=== PATIENT | male | born 1930 | race Two or more races ===

== ENCOUNTER 2018-05-17 12:02 | Inpatient (IN) | payer MEDICARE ==
[~2018-05-17] VITALS: Ht 177.8 cm; Wt 59.0 kg
[~2018-05-17 12:02] MED LIST: NORCO 5-325 TA1 EACH ORAL
[2018-05-17 15:00] VITALS: BP 155/79
[2018-05-17 15:52] VITALS: BP 155/79
[2018-05-17 15:57] VITALS: BP 137/66
[2018-05-17] MEDS ORDERED: Nitroglycerin Subl 0.4mg tab SL PRN (18:15)
[2018-05-17] MEDS ORDERED: Lexiscan 0.4mg/5ml syringe IV PRN (18:15)
--- NOTE | 2018-05-17 18:21 | History & Physical ---
History and Physical History & Physicial Dictated for Int Med-Dr Perez no. [id number]. Berto Bailey MD May 17, 2018 18:21
[2018-05-17 18:59] LABS: BASOPHILS % (AUTO) 0.6 % (0.0-2.0); EOSINOPHILS % (AUTO) 1.5 % (0.0-3.0); HEMATOCRIT 38.3 % (42.0-52.0); HEMOGLOBIN 12.4 G/DL (14.2-18.0); LYMPHOCYTES % (AUTO) 30.6 % (20.0-45.0); MEAN CORPUSCULAR VOLUME 92 FL (80-99); MONOCYTES % (AUTO) 13.5 % (1.0-10.0); NEUTROPHILS % (AUTO) 53.9 % (45.0-75.0); PLATELET COUNT 120 K/UL (150-450); RED BLOOD COUNT 4.17 M/UL (4.70-6.10); RED CELL DISTRIBUTION WIDTH 14.6 % (11.6-14.8); WHITE BLOOD COUNT 3.8 K/UL (4.8-10.8)
[2018-05-17 19:04] LABS: INR 1.1 (0.9-1.1)
[2018-05-17 19:21] LABS: ALANINE AMINOTRANSFERASE 23 U/L (12-78); ALBUMIN/GLOBULIN RATIO 0.6 (1.0-2.7); ALKALINE PHOSPHATASE 217 U/L (46-116); ANION GAP 9 mmol/L (5-15); ASPARTATE AMINO TRANSFERASE 31 U/L (15-37); BILIRUBIN,TOTAL 0.7 MG/DL (0.2-1.0); BLOOD UREA NITROGEN 34 mg/dL (7-18); CALCIUM 9.1 MG/DL (8.5-10.1); CARBON DIOXIDE 28 MMOL/L (21-32); CHLORIDE 99 MMOL/L (98-107); CREATININE 1.4 MG/DL (0.55-1.30); POTASSIUM 4.3 MMOL/L (3.5-5.1); SODIUM 136 MMOL/L (136-145)
[2018-05-17 20:00] VITALS: BP 138/80
[2018-05-17] MEDS: Heparin 5000 units/ml inj SUBQ SCH (20:54)
[2018-05-17] MEDS ORDERED: Heparin 5000 units/ml inj SUBQ ONE (21:00)
[2018-05-17] MEDS: Docusate 100mg cap ORAL SCH (21:08)
[2018-05-17] MEDS: HYDROmorphone 1mg/ml Carpuject IVP PRN (21:09)
[2018-05-17] MEDS: Zolpidem 5mg tab ORAL PRN (23:22)
[2018-05-18] VITALS: BP 134/91
--- NOTE | 2018-05-18 01:14 | History and Physical Report ---
DATE OF ADMISSION: 05/17/2018 CHIEF COMPLAINT: The patient is an 87-year-old white male, presents with chief complaint of chest pain. HISTORY OF PRESENT ILLNESS: The patient has a history of coronary artery disease, status post stent placement in 2006. The patient began to experience chest pain one day prior to admission. Chest pain does not radiate to the jaw or to the shoulder. Chest pain is substernal and sharp in nature. The patient presented to [facility] Emergency Room. Initial troponin level was within normal limits. The patient is transferred to [facility] for insurance purposes. The patient is admitted for chest pain to rule out acute coronary syndrome. REVIEW OF SYSTEMS: CONSTITUTIONAL: The patient denies weight loss or weight gain. The patient denies fevers or chills. HEENT: The patient denies ear or throat pain. The patient denies headache. CARDIOVASCULAR: The patient complains of chest pain as above. The patient denies palpitations. ABDOMINAL: The patient denies nausea, vomiting, diarrhea, or constipation. GENITOURINARY: The patient denies dysuria or increased frequency of urination. NEUROMUSCULAR: The patient denies seizures or generalized weakness. PAST MEDICAL HISTORY: Significant for: 1. Aortic valve insufficiency. 2. Human immunodeficiency virus positive. 3. Coronary artery disease. 4. Hypercholesterolemia. 5. AV block, Mobitz type II. PAST SURGICAL HISTORY: Significant for: 1. Appendectomy. 2. Cataract surgery. 3. Cosmetic surgery of the face. 4. Appendectomy. 5. Aortic valve replacement. 6. Pacemaker implantation in 2010. CURRENT MEDICATIONS: 1. Opp 5/325 mg one tablet p.o. q.6 h. as needed pain. 2. Lexiva 700 mg 2 tablets p.o. twice daily. 3. Aspirin 81 mg 1 tablet p.o. daily. ALLERGIES: To penicillin. SOCIAL HISTORY: The patient is single and lives alone. The patient denies tobacco or alcohol use. PHYSICAL EXAMINATION: VITAL SIGNS: Temperature 97.5, respirations 18, and pulse 59 to 78. GENERAL: The patient is thin-appearing white male, in no apparent distress. HEENT: Eyes, pupils are equal and responsive to light and accommodation. Extraocular movements are intact. NECK: Supple without lymphadenopathy. CHEST: Lungs are clear to auscultation bilaterally without wheezes or rales. CARDIOVASCULAR: Regular rhythm and rate. S1, S2 are normal without murmurs, rubs, or gallops. ABDOMEN: Soft, nontender, and nondistended. Positive bowel sounds. No evidence of hepatosplenomegaly. Currently, no rebound or guarding noted. EXTREMITIES: Negative for clubbing, cyanosis, or edema. RECTAL/GENITAL: Refused. NEUROLOGIC: Cranial nerves II through XII are grossly intact without focal deficits. Motor strength is 5/5 bilaterally. Deep tendon reflexes are 2+ plantar. LABORATORY AND DIAGNOSTIC DATA: WBC 3.3, hemoglobin 11.9, hematocrit 35.1, and platelets 125,000. Sodium 134, potassium 4.1, chloride 101, CO2 24, troponin 0.06, BUN 48, creatinine , and glucose 86. EKG demonstrated ventricular pacing at approximately 77 beats per minute. ASSESSMENT: This is an 87-year-old white male with, 1. Chest pain. 2. Coronary artery disease. 3. Human immunodeficiency virus. 4. Hypercholesteremia. 5. AV block, Mobitz type II. TREATMENT: 1. Chest pain/history of coronary artery disease. A Cardiology consultation has been obtained with Dr. Bob Reaves. Serial troponin levels will be performed. The patient has been started on aspirin empirically. 2. HIV. Continue Lexiva as above. 3. Hypercholesterolemia. 4. AV block, Mobitz type II. The patient has a ventricular pacemaker. Berto Bailey M.D. DR: JESENIA JOB#: [id number] CC:
[2018-05-18] MEDS: LORazepam 1mg tab ORAL PRN (02:39)
[2018-05-18] MEDS: HYDROmorphone 1mg/ml Carpuject IVP PRN (03:25)
[2018-05-18 04:00] VITALS: BP 126/82
[2018-05-18 07:44] LABS: BASOPHILS % (AUTO) 0.8 % (0.0-2.0); EOSINOPHILS % (AUTO) 1.4 % (0.0-3.0); HEMOGLOBIN 11.4 G/DL (14.2-18.0); LYMPHOCYTES % (AUTO) 23.5 % (20.0-45.0); MEAN CORPUSCULAR VOLUME 92 FL (80-99); MONOCYTES % (AUTO) 15.5 % (1.0-10.0); NEUTROPHILS % (AUTO) 58.8 % (45.0-75.0); PLATELET COUNT 125 K/UL (150-450); RED BLOOD COUNT 3.71 M/UL (4.70-6.10); RED CELL DISTRIBUTION WIDTH 14.9 % (11.6-14.8); WHITE BLOOD COUNT 3.8 K/UL (4.8-10.8)
[2018-05-18 08:00] VITALS: BP 138/76
[2018-05-18 08:02] LABS: ANION GAP 8 mmol/L (5-15); BLOOD UREA NITROGEN 28 mg/dL (7-18); CALCIUM 9.2 MG/DL (8.5-10.1); CARBON DIOXIDE 27 MMOL/L (21-32); CHLORIDE 103 MMOL/L (98-107); CHOLESTEROL 107 MG/DL (< 200); CREATININE 1.3 MG/DL (0.55-1.30); HDL CHOLESTEROL 35 MG/DL (40-60); POTASSIUM 4.4 MMOL/L (3.5-5.1); SODIUM 138 MMOL/L (136-145); TRIGLYCERIDES 71 MG/DL (30-150)
[2018-05-18] MEDS ORDERED: Aspirin EC 325mg tab ORAL SCH (09:00)
[2018-05-18] MEDS: Heparin 5000 units/ml inj SUBQ SCH ×2 (09:00→20:50)
[2018-05-18] MEDS: Docusate 100mg cap ORAL SCH ×2 (09:28→20:49)
[2018-05-18 12:00] VITALS: BP 150/88
[2018-05-18 16:00] VITALS: BP 153/82
--- NOTE | 2018-05-18 16:06 | Internal Med Progress Note ---
Subjective Date of Service: May 18, 2018 Physician Name Berto Bailey Attending Physician Alejandro Perez MD Current Medications Medications (Trade) Dose Ordered Sig/Irina Route PRN Reason Start Time Stop Time Status Last Admin Dose Admin Acetaminophen (Tylenol) 650 mg Q4H PRN ORAL Mild Pain (Pain Scale 1-3) 05/17/18 18:15 06/16/18 18:14 Acetaminophen (Tylenol) 650 mg Q4H PRN ORAL T>100.5 05/17/18 18:15 06/16/18 18:14 Aspirin (Ecotrin) 325 mg DAILY ORAL 05/18/18 09:00 06/17/18 08:59 05/18/18 09:28 Dextrose (Dextrose 50%) 25 ml Q30M PRN IV Hypoglycemia 05/17/18 18:15 06/16/18 18:14 Dextrose (Dextrose 50%) 50 ml Q30M PRN IV Hypoglycemia 05/17/18 18:15 06/16/18 18:14 Docusate Sodium (Colace) 100 mg EVERY 12 HOURS ORAL 05/17/18 21:00 06/16/18 20:59 05/18/18 09:28 Heparin Sodium (Porcine) (Heparin 5000 units/ml) 5,000 units EVERY 12 HOURS SUBQ 05/17/18 21:00 06/16/18 20:59 Hydromorphone HCl (Dilaudid) 1 mg Q4H PRN IVP Moderate Pain (Pain Scale 4-6) 05/17/18 18:15 05/24/18 18:14 05/18/18 03:25 Hydromorphone HCl (Dilaudid) 2 mg Q4H PRN IVP Severe Pain (Pain Scale 7-10) 05/17/18 18:15 05/24/18 18:14 05/18/18 10:52 Lorazepam (Ativan) 1 mg Q4H PRN ORAL For Anxiety 05/17/18 18:15 05/24/18 18:14 05/18/18 02:39 Nitroglycerin (Ntg) 0.4 mg Q5M PRN SL Prn Chest Pain 05/17/18 18:15 06/16/18 18:14 Ondansetron HCl (Zofran) 4 mg Q6H PRN IVP Nausea & Vomiting 05/17/18 18:15 06/16/18 18:14 Pantoprazole (Protonix) 40 mg DAILY ORAL 05/18/18 09:00 06/17/18 08:59 05/18/18 09:28 Regadenoson (Lexiscan) 0.4 mg ONCE PRN IV STRESS TEST 05/17/18 18:15 05/20/18 23:59 Zolpidem Tartrate (Ambien) 5 mg HSPRN PRN ORAL Insomnia 05/17/18 21:00 05/24/18 20:59 05/17/18 23:22 Allergies: Coded Allergies: PENICILLINS (Verified Allergy, Severe, Swelling tongue, 05/17/18) ROS Limited/Unobtainable: No Constitutional: Reports: no symptoms HEENT: Reports: no symptoms Cardiovascular: Reports: chest pain Respiratory: Reports: no symptoms Gastrointestinal/Abdominal: Reports: no symptoms Genitourinary: Reports: no symptoms Neurologic/Psychiatric: Reports: no symptoms Subjective 87 YO M admitted with chest pain. Now 40 beat run of ventricular tachycardia last pm. Needs cardiac cath. Await transfer to [facility] [place]. Cover for Int Med-Dr Perez Objective Last Vital Signs Date Time Temp Pulse Resp B/P (MAP) Pulse Ox O2 Delivery O2 Flow Rate FiO2 05/18/18 12:00 98.0 103 20 150/88 (108) 96 05/18/18 09:00 Room Air General Appearance: WD/WN, no apparent distress, alert, thin EENT: PERRL/EOMI, normal ENT inspection, TMs normal Neck: non-tender, normal alignment, supple, normal inspection Cardiovascular: normal peripheral pulses, normal rate, regular rhythm, no gallop/murmur, no JVD Respiratory/Chest: chest wall non-tender, lungs clear, normal breath sounds, no respiratory distress, no accessory muscle use Abdomen: normal bowel sounds, non tender, soft, no organomegaly, no mass Extremities: normal range of motion, non-tender Neurologic: home health nurse II-XII grossly normal, no motor/sensory deficits Skin: normal pigmentation, warm/dry Laboratory Tests Test 05/17/18 18:35 05/18/18 06:45 05/18/18 09:45 White Blood Count 3.8 K/UL (4.8-10.8) L 3.8 K/UL (4.8-10.8) L Red Blood Count 4.17 M/UL (4.70-6.10) L 3.71 M/UL (4.70-6.10) L Hemoglobin 12.4 G/DL (14.2-18.0) L 11.4 G/DL (14.2-18.0) L Hematocrit 38.3 % (42.0-52.0) L 34.0 % (42.0-52.0) L Mean Corpuscular Volume 92 FL (80-99) 92 FL (80-99) Mean Corpuscular Hemoglobin 29.8 PG (27.0-31.0) 30.7 PG (27.0-31.0) Mean Corpuscular Hemoglobin Concent 32.4 G/DL (32.0-36.0) 33.5 G/DL (32.0-36.0) Red Cell Distribution Width 14.6 % (11.6-14.8) 14.9 % (11.6-14.8) H Platelet Count 120 K/UL (150-450) L 125 K/UL (150-450) L Mean Platelet Volume 5.7 FL (6.5-10.1) L 6.0 FL (6.5-10.1) L Neutrophils (%) (Auto) 53.9 % (45.0-75.0) 58.8 % (45.0-75.0) Lymphocytes (%) (Auto) 30.6 % (20.0-45.0) 23.5 % (20.0-45.0) Monocytes (%) (Auto) 13.5 % (1.0-10.0) H 15.5 % (1.0-10.0) H Eosinophils (%) (Auto) 1.5 % (0.0-3.0) 1.4 % (0.0-3.0) Basophils (%) (Auto) 0.6 % (0.0-2.0) 0.8 % (0.0-2.0) Prothrombin Time 11.7 SEC (9.30-11.50) H Prothromb Time International Ratio 1.1 (0.9-1.1) Activated Partial Thromboplast Time 31 SEC (23-33) Sodium Level 136 MMOL/L (136-145) 138 MMOL/L (136-145) Potassium Level 4.3 MMOL/L (3.5-5.1) 4.4 MMOL/L (3.5-5.1) Chloride Level 99 MMOL/L (98-107) 103 MMOL/L (98-107) Carbon Dioxide Level 28 MMOL/L (21-32) 27 MMOL/L (21-32) Anion Gap 9 mmol/L (5-15) 8 mmol/L (5-15) Blood Urea Nitrogen 34 mg/dL (7-18) H 28 mg/dL (7-18) H Creatinine 1.4 MG/DL (0.55-1.30) H 1.3 MG/DL (0.55-1.30) Estimat Glomerular Filtration Rate mL/min (>60) mL/min (>60) Glucose Level 66 MG/DL (74-106) L 73 MG/DL (74-106) L Calcium Level 9.1 MG/DL (8.5-10.1) 9.2 MG/DL (8.5-10.1) Total Bilirubin 0.7 MG/DL (0.2-1.0) Aspartate Amino Transf (AST/SGOT) 31 U/L (15-37) Alanine Aminotransferase (ALT/SGPT) 23 U/L (12-78) Alkaline Phosphatase 217 U/L (46-116) H Troponin I 0.068 ng/mL (0.000-0.056) 0.053 ng/mL (0.000-0.056) Total Protein 7.7 G/DL (6.4-8.2) Albumin 3.0 G/DL (3.4-5.0) L Globulin 4.7 g/dL Albumin/Globulin Ratio 0.6 (1.0-2.7) L Thyroid Stimulating Hormone (TSH) 4.029 uiU/mL (0.358-3.740) Triglycerides Level 71 MG/DL (30-150) Cholesterol Level 107 MG/DL (< 200) LDL Cholesterol 68 mg/dL (<100) HDL Cholesterol 35 MG/DL (40-60) L Cholesterol/HDL Ratio 3.1 (3.3-4.4) L Magnesium Level 1.5 MG/DL (1.8-2.4) L Intake and Output 05/17/18 05/18/18 18:59 06:59 Intake Total 240 ml Balance 240 ml Intake Oral 240 ml # Voids 1 3 Assessment/Plan Problem List: (1) HIV disease Assessment & Plan: Continue Lexiva (2) Hypercholesteremia (3) Mobitz type 2 second degree AV block Assessment & Plan: S/P pacemaker. (4) Ventricular tachycardia (paroxysmal) (5) Congestive heart failure (CHF) Assessment & Plan: LVEF=20-25%. See cardiology note. Will require defibrillator. Await transfer to [facility] (6) Chest pain Assessment & Plan: Patient needs cardiac cath in view of previous stent X4 and v-tach. Await transfer to [facility] Status: not improved Berto Bailey MD May 18, 2018 16:06
--- NOTE | 2018-05-18 16:28 | Infectious Diseases Prog Note ---
Assessment/Plan Assessment/Plan Full consult dictated: A) 1) hiv, does not remember anti-retrovirals 2) cp 3) hx cardiac disease P) 1) check cd4 and viral load 2) get records of anti-retrovirals 3) cardiac w/u 4) d/w Dr. Bailey 5) thank you Subjective Allergies: Coded Allergies: PENICILLINS (Verified Allergy, Severe, Swelling tongue, 05/17/18) Objective Vital Signs Last 24 Hour Vital Signs Date Time Temp Pulse Resp B/P (MAP) Pulse Ox O2 Delivery O2 Flow Rate FiO2 05/18/18 12:00 98.0 103 20 150/88 (108) 96 05/18/18 12:00 113 05/18/18 11:22 98.6 05/18/18 09:00 Room Air 05/18/18 08:00 67 05/18/18 08:00 98.6 74 20 138/76 (96) 96 05/18/18 04:00 89 05/18/18 04:00 97.7 74 18 126/82 (97) 97 05/18/18 00:00 76 05/18/18 00:00 98.5 80 19 134/91 (105) 98 05/17/18 21:00 Room Air 05/17/18 20:00 97.7 72 18 138/80 (99) 97 05/17/18 20:00 80 Height (Feet): 5 Height (Inches): 10.00 Weight (Pounds): 130 Laboratory Tests Test 05/17/18 18:35 05/18/18 06:45 05/18/18 09:45 White Blood Count 3.8 K/UL (4.8-10.8) L 3.8 K/UL (4.8-10.8) L Red Blood Count 4.17 M/UL (4.70-6.10) L 3.71 M/UL (4.70-6.10) L Hemoglobin 12.4 G/DL (14.2-18.0) L 11.4 G/DL (14.2-18.0) L Hematocrit 38.3 % (42.0-52.0) L 34.0 % (42.0-52.0) L Mean Corpuscular Volume 92 FL (80-99) 92 FL (80-99) Mean Corpuscular Hemoglobin 29.8 PG (27.0-31.0) 30.7 PG (27.0-31.0) Mean Corpuscular Hemoglobin Concent 32.4 G/DL (32.0-36.0) 33.5 G/DL (32.0-36.0) Red Cell Distribution Width 14.6 % (11.6-14.8) 14.9 % (11.6-14.8) H Platelet Count 120 K/UL (150-450) L 125 K/UL (150-450) L Mean Platelet Volume 5.7 FL (6.5-10.1) L 6.0 FL (6.5-10.1) L Neutrophils (%) (Auto) 53.9 % (45.0-75.0) 58.8 % (45.0-75.0) Lymphocytes (%) (Auto) 30.6 % (20.0-45.0) 23.5 % (20.0-45.0) Monocytes (%) (Auto) 13.5 % (1.0-10.0) H 15.5 % (1.0-10.0) H Eosinophils (%) (Auto) 1.5 % (0.0-3.0) 1.4 % (0.0-3.0) Basophils (%) (Auto) 0.6 % (0.0-2.0) 0.8 % (0.0-2.0) Prothrombin Time 11.7 SEC (9.30-11.50) H Prothromb Time International Ratio 1.1 (0.9-1.1) Activated Partial Thromboplast Time 31 SEC (23-33) Sodium Level 136 MMOL/L (136-145) 138 MMOL/L (136-145) Potassium Level 4.3 MMOL/L (3.5-5.1) 4.4 MMOL/L (3.5-5.1) Chloride Level 99 MMOL/L (98-107) 103 MMOL/L (98-107) Carbon Dioxide Level 28 MMOL/L (21-32) 27 MMOL/L (21-32) Anion Gap 9 mmol/L (5-15) 8 mmol/L (5-15) Blood Urea Nitrogen 34 mg/dL (7-18) H 28 mg/dL (7-18) H Creatinine 1.4 MG/DL (0.55-1.30) H 1.3 MG/DL (0.55-1.30) Estimat Glomerular Filtration Rate mL/min (>60) mL/min (>60) Glucose Level 66 MG/DL (74-106) L 73 MG/DL (74-106) L Calcium Level 9.1 MG/DL (8.5-10.1) 9.2 MG/DL (8.5-10.1) Total Bilirubin 0.7 MG/DL (0.2-1.0) Aspartate Amino Transf (AST/SGOT) 31 U/L (15-37) Alanine Aminotransferase (ALT/SGPT) 23 U/L (12-78) Alkaline Phosphatase 217 U/L (46-116) H Troponin I 0.068 ng/mL (0.000-0.056) 0.053 ng/mL (0.000-0.056) Total Protein 7.7 G/DL (6.4-8.2) Albumin 3.0 G/DL (3.4-5.0) L Globulin 4.7 g/dL Albumin/Globulin Ratio 0.6 (1.0-2.7) L Thyroid Stimulating Hormone (TSH) 4.029 uiU/mL (0.358-3.740) Triglycerides Level 71 MG/DL (30-150) Cholesterol Level 107 MG/DL (< 200) LDL Cholesterol 68 mg/dL (<100) HDL Cholesterol 35 MG/DL (40-60) L Cholesterol/HDL Ratio 3.1 (3.3-4.4) L Magnesium Level 1.5 MG/DL (1.8-2.4) L Current Medications Medications (Trade) Dose Ordered Sig/Irina Route PRN Reason Start Time Stop Time Status Last Admin Dose Admin Acetaminophen (Tylenol) 650 mg Q4H PRN ORAL Mild Pain (Pain Scale 1-3) 05/17/18 18:15 06/16/18 18:14 Acetaminophen (Tylenol) 650 mg Q4H PRN ORAL T>100.5 05/17/18 18:15 06/16/18 18:14 Aspirin (Ecotrin) 325 mg DAILY ORAL 05/18/18 09:00 06/17/18 08:59 05/18/18 09:28 Dextrose (Dextrose 50%) 25 ml Q30M PRN IV Hypoglycemia 12/8/18 18:15 06/16/18 18:14 Dextrose (Dextrose 50%) 50 ml Q30M PRN IV Hypoglycemia 05/17/18 18:15 06/16/18 18:14 Docusate Sodium (Colace) 100 mg EVERY 12 HOURS ORAL 05/17/18 21:00 06/16/18 20:59 05/18/18 09:28 Heparin Sodium (Porcine) (Heparin 5000 units/ml) 5,000 units EVERY 12 HOURS SUBQ 05/17/18 21:00 06/16/18 20:59 Hydromorphone HCl (Dilaudid) 1 mg Q4H PRN IVP Moderate Pain (Pain Scale 4-6) 05/17/18 18:15 05/24/18 18:14 05/18/18 03:25 Hydromorphone HCl (Dilaudid) 2 mg Q4H PRN IVP Severe Pain (Pain Scale 7-10) 05/17/18 18:15 05/24/18 18:14 05/18/18 10:52 Lorazepam (Ativan) 1 mg Q4H PRN ORAL For Anxiety 05/17/18 18:15 05/24/18 18:14 05/18/18 02:39 Nitroglycerin (Ntg) 0.4 mg Q5M PRN SL Prn Chest Pain 05/17/18 18:15 06/16/18 18:14 Ondansetron HCl (Zofran) 4 mg Q6H PRN IVP Nausea & Vomiting 05/17/18 18:15 06/16/18 18:14 Pantoprazole (Protonix) 40 mg DAILY ORAL 05/18/18 09:00 06/17/18 08:59 05/18/18 09:28 Regadenoson (Lexiscan) 0.4 mg ONCE PRN IV STRESS TEST 05/17/18 18:15 05/20/18 23:59 Zolpidem Tartrate (Ambien) 5 mg HSPRN PRN ORAL Insomnia 05/17/18 21:00 05/24/18 20:59 05/17/18 23:22 Harika Benjamin MD May 18, 2018 16:28
[2018-05-18 20:00] VITALS: BP 150/86
[2018-05-18] MEDS: Zolpidem 5mg tab ORAL PRN (23:17)
[2018-05-19] VITALS: BP 155/72
--- NOTE | 2018-05-19 00:45 | Consultation ---
DATE OF CONSULTATION: 05/18/2018 INFECTIOUS DISEASES CONSULTATION CONSULTING PHYSICIAN: Harika Benjamin M.D. ATTENDING PHYSICIAN: Alejandro Perez M.D. REFERRING PHYSICIAN: Berto Bailey M.D. REASON FOR CONSULTATION: The patient with HIV infection, on anti-retroviral therapy. CHIEF COMPLAINT: The patient's chief complaint coming into the hospital is chest pain and back pain, possible cardiac pathology. HISTORY OF PRESENT ILLNESS: This is a very pleasant 87-year-old male who has a history of HIV. He does not remember exact T-cell count per discussion with Dr. Bailey and the patient. The patient has undetectable viral load; however, it is unclear if this is true or not. We do not have definitive records. The patient presented to [facility] with what looks like atypical chest pain and back pain from outside facility. The patient was transferred to [facility] for further workup. I discussed with Dr. Bailey. The patient will likely need transfer for cardiac workup including possible catheterization. Infectious Diseases consultation requested because it is unclear what anti-retroviral regimen the patient is on. I discussed with the patient at length and Dr. Bailey, it is still unclear at this time. The patient states it starts with a P, but when I said is he on Prezista, he does not remember. We will try to get his records from home or from other facilities like his pharmacy for CD4 viral load. Case discussed with Dr. Bailey. MAR was noted. Orders were noted. Notes were reviewed. Case was discussed with RN. REVIEW OF SYSTEMS: CONSTITUTIONAL: The patient has no fever, chills, night sweats, weight loss. No focal weakness. HEAD AND NECK: No head pain or neck pain. No thrush or dysphagia. CARDIAC: Came in with back pain and chest pain. No palpitations currently. GASTROINTESTINAL: No nausea, vomiting, or diarrhea. No abdominal pain. GENITOURINARY: No dysuria or frequency. No CVA tenderness. PULMONARY: No significant congestion, shortness of breath, hemoptysis, or secretions. SKIN: No rashes or itching. EXTREMITIES: No extremity pain. NEUROLOGIC: No seizures. PAST MEDICAL HISTORY: The patient's past medical history includes history of following: The patient has a past medical history of HIV and is on anti-retroviral therapy; however, he does not remember which ones. He said his viral load is undetectable; however, we will check CD4 viral load. It is unclear the immune status of the patient. He also has other past medical history besides HIV, he has a past medical history of aortic valve insufficiency, history of coronary artery disease, history of hypercholesterolemia, history of AV block Mobitz type 2, history of dyslipidemia, aortic valve replacement, appendectomy, cosmetic surgery, cataracts, pacemaker. No history of diabetes mentioned. He has a history of congestive heart failure in the past, ventricular tachycardia, shoulder strain. He has a history of possible hypertension, he is on lisinopril. ALLERGIES: Include penicillin. FAMILY HISTORY: Noncontributory. Negative for diabetes or cancer. SOCIAL HISTORY: Negative for smoking, alcohol, or drug abuse. MEDICATIONS: Prior to admission include Lexiva, aspirin, [place]. It is unclear what antiretrovirals the patient is on currently. Upon reviewing the MAR, he is on the following medications. He is on lisinopril, spironolactone, Aldactone, furosemide, carvedilol, Coreg, aspirin, pantoprazole, heparin, docusate, zolpidem, nitroglycerin, acetaminophen, hydromorphone, Dilaudid, Zofran, lorazepam, . PHYSICAL EXAMINATION: VITAL SIGNS: Temperature is 98.0, pulse rate is 103, respiratory rate 20, O2 saturation 96%, blood pressure 152/88. GENERAL: Alert and responsive, no acute distress. HEAD AND NECK: Oral exam, no thrush. Eye exam, no icterus. Neck is supple. No JVD. Normocephalic. No icterus or thrush. NECK: Supple. HEART: Regular. He has 1/6 systolic murmur. No gallop or friction rub heard. ABDOMEN: Soft. Positive bowel sounds. Nontender. LUNGS: Clear bilaterally. No rhonchi or rales. SKIN: No rash. MUSCULOSKELETAL: No effusion. Legs are without cellulitis. No evidence of septic arthritis. PERIPHERAL VASCULAR: No cyanosis or gangrene. No other rash. GENITOURINARY: No CVA tenderness. No Smith. LINE SITES: Without phlebitis. NEUROLOGIC: Intact. Nonfocal. Alert and oriented. LABORATORY AND DIAGNOSTIC DATA: Laboratory data as follows, white count is 3.8, hemoglobin 11.4, platelet count is 125. Creatinine is 1.3, it was 1.4. LFTs were noted. Troponin was mildly elevated at 0.068. Creatinine 1.3. Imaging studies pending. Outside labs were noted. ASSESSMENT/PLAN: 1. The patient has HIV infection. It is unclear what the CD4 count and viral load are on this patient. He said it is undetectable viral load. The patient does not remember his anti-retroviral therapy. He says it starts with a P, but he is not 100% sure. We will try to obtain the records to see the immune status for his human immunodeficiency virus infection. Once we get the CD4 viral load back, we will consider prophylaxis if needed. Once we get the records of his anti-retroviral therapy, we will start as soon as possible. The patient is following somebody for his HIV in discussion with the patient in the outpatient setting. Await CD4 viral load and anti-retroviral therapy records to see what he is on. 2. Chest pain and back pain. Cardiac workup in progress. 3. The patient has a history of aortic valve insufficiency. 4. Possible hypertension. He is on blood pressure medication. 5. Coronary artery disease. 6. Hypercholesterolemia and dyslipidemia. 7. History of AV block, Mobitz type 2. 8. History of appendectomy and cataract surgery. 9. History of cosmetic surgery. 10. History of aortic valve replacement. 11. History of pacemaker. 12. No history of diabetes. 13. Anemia. 14. Leukopenia and thrombocytopenia. 15. History of ventricular tachycardia. 16. History of CHF. 17. Allergies to penicillin. 18. Social history is negative. 19. Family history is noncontributory. 20. MAR was noted. 21. Case discussed with RN. 22. Case discussed with Dr. Bailey. 23. Case discussed with the patient. 24. Orders were noted and entered. 25. Notes and records were noted. Harika Benjamin M.D. DR: Miranda JOB#: [id number] CC:
[2018-05-19] MEDS: LORazepam 1mg tab ORAL PRN (01:25)
--- NOTE | 2018-05-19 01:45 | Consultation ---
DATE OF CONSULTATION: 05/18/2018 ADDENDUM In communicating with Dr. Bailey, the patient has been on Complera from outside the hospital. This is a combination of emtricitabine, tenofovir, and rilpivirine. Discussed with pharmacy, we do not have rilpivirine at this hospital, and thus we do not have the combination for Complera at this facility. We will try to encourage the patient to get his own medication from the outside hospital. Harika Benjamin M.D. DR: CHIKI JOB#: [id number] CC:
--- NOTE | 2018-05-19 03:00 | Consultation ---
DATE OF CONSULTATION: 05/18/2018 CARDIOLOGY CONSULTATION CONSULTING PHYSICIAN: Bob Reaves M.D. REFERRING PHYSICIAN: Alejandro Perez M.D. REASON FOR CONSULTATION: Long runs of ventricular tachycardia in someone with severe cardiomyopathy and history of open heart surgery. HISTORY OF PRESENT ILLNESS: The patient is an 87-year-old gentleman with history of hypertension, coronary artery disease, history of stent in 2006 as well as history of open heart surgery for aortic valve replacement. The patient also has a history of pacemaker implantation in 2009. The patient presented to [facility] emergency room. Initial troponin was normal. He complained of shortness of breath. The patient also had chest pain and was transferred to [facility] for further evaluation. The patient was found to have multiple runs of ventricular tachycardia including runs of up to beats of ventricular tachycardia. Cardiac electrophysiology consultation was obtained for further evaluation and management. REVIEW OF SYSTEMS: Negative other than what is mentioned in the history of present illness. PAST MEDICAL HISTORY: 1. Hypertension. 2. Coronary artery disease. 3. History of aortic valve replacement. 4. History of permanent pacemaker implantation. 5. HIV. 6. hyperlipidemia. PAST SURGICAL HISTORY: Include appendectomy, aortic valve replacement, pacemaker implantation in 2009, cosmetic surgery of the face, cataract surgery, and appendectomy. MEDICATIONS: His current medication include aspirin. LABORATORY AND DIAGNOSTIC DATA: His echocardiogram showed ejection fraction of 25%. Labs show white count of 3.8, hemoglobin 11.4, hematocrit 34, and platelet count is 125. Sodium 138, potassium 4.4, BUN of 28, and creatinine 1.3. Troponin 0.068 and 0.053. ASSESSMENT AND PLAN: 1. Recurrent runs of ventricular tachycardia, ejection fraction of 20%. The patient would need cardiac catheterization for further evaluation of his coronaries. I am not sure whether his stent is patent or whether he also had coronary artery bypass graft or just aortic valve replacement. We will try to get the records [facility] further evaluation of his coronaries. 2. Severe cardiomyopathy. Cardiac catheterization will be done to evaluate for it being ischemic or nonischemic. In the meantime, start the patient on Coreg, lisinopril, Aldactone, and Lasix. 3. Troponin leak, cardiac catheterization is recommended. 4. Status post aortic valve replacement. 5. Status post pacemaker implantation. He likely needs upgrade of pacemaker to a defibrillator, but he does not know the brand of pacemaker. We will try to find the brand and interrogate for further evaluation and management. Thank you very much, Dr. Bailey, for allowing me to participate in the care of this patient. Please do not hesitate to contact me for any questions regarding my evaluation. Sincerely, Bob Reaves M.D. DR: Ari JOB#: [id number] CC:
[2018-05-19 04:00] VITALS: BP 136/70
[2018-05-19] MEDS ORDERED: Spironolactone 25mg tab ORAL SCH (09:00)
[2018-05-19] MEDS ORDERED: Lisinopril 10mg tab ORAL SCH (09:00)
--- NOTE | 2018-05-20 11:28 | Discharge Summary ---
Discharge Summary Discharge Summary _ DATE OF ADMISSION: 05/17/2018 DATE OF DISCHARGE: 05/19/2018 REASON FOR ADMISSION: 87 years old male with past medical history of hypertension, coronary artery disease, history of stent in 2006, history of open heart surgery for aortic valve replacement, history of pacemaker implantation in 2009, hypercholesterolemia, AV block Mobitz type II, human immunodeficiency status, initially presented to to [facility] emergency department with complaints of shortness of breath and chest pain. Initial troponin was negative. ECG demonstrated ventricular pacing with stable heart rate. Patient was transferred to [facility] for further management for insurance purposes with diagnosis of chest pain , rule out acute coronary syndrome. CONSULTANTS: paint line operator Dr. Baljinder BRUNO specialist Dr. Benjamin [facility] COURSE: Patient admitted to telemetry floor. 911 Dispatcher clsoely followed. Serial troponin were performed. First troponin, 0.068, the next two negative. Patient started on antiplatelet therapy with aspirin. Echocardiogram revealed global left ventricular hypokinesis with significantly decreased ejection fraction. Mild left ventricular hypertrophy. No evidence of pericardial effusion. Evidence of aortic stenosis. Moderate mitral and tricuspid regurgitation. Right ventricular systolic pressure of 49 consistent with moderate pulmonary hypertension. Lipid panel revealed LDL at goal, but low HDL. Patient demonstrated recurrent runs of ventricular tachycardia on telemetry. Per paint line operator , patient required cardiac catheterization for further evaluation of coronary arteries. Anti-failure regimen started with beta-henrry, KARY inhibitor, Aldactone and Lasix. Cardiac catheterization will determine if cardiomyopathy ischemic or nonischemic in nature. Per paint line operator , patient had troponin leak but cardiac catheterization was recommended. Patient likely will need upgrade from pacemaker to defibrillator. Pacemaker need to be interrogated for further evaluation and management. Nitroglycerin provided on as needed basis. Pain management was addressed, and pain was controlled. Supplemental oxygen provided as needed to keep pulse oximetry above 90%. Pulmonary toilet was on standby as needed. DVT and GI prophylaxis provided. Bowel regimen instituted. Infectious disease doctor closely follow. CD4 and viral load were ordered. Records of antiretroviral medications were requested from outside facility. Transfer was arranged to [facility] for cardiac catheterization. Patient was transferred via [facility] ambulance for cardiac catheterization. FINAL DIAGNOSES: Recurrent rounds of ventricular tachycardia in patient with EF 20% /paroxysmal ventricular tachycardia Severe cardiomyopathy with ejection fraction 20% Troponin leak Pacemaker Status post aortic valve replacement Hypercholesteremia HIV disease DISCHARGE MEDICATIONS: List of medication was sent to accepting facility. DISCHARGE INSTRUCTIONS: Patient was transferred to [facility] [place] for further management I have been assigned to dictate discharge summary for this account. I was not involved in the patient's management. Sarita Lopez NP May 20, 2018 11:28
== END 2018-05-19 05:00 | disposition short-term general hospital (02) | DRG 309 ==
LOC: 2E 14:20
DX: I47.2 Ventricular tachycardia (principal); B20 Human immunodeficiency virus [HIV] disease; I42.9 Cardiomyopathy, unspecified; I25.10 Atherosclerotic heart disease of native coronary artery without angina pectoris; Z95.5 Presence of coronary angioplasty implant and graft; Z88.0 Allergy status to penicillin; E78.00 Pure hypercholesterolemia, unspecified; Z95.0 Presence of cardiac pacemaker; Z95.2 Presence of prosthetic heart valve; I27.20 Pulmonary hypertension, unspecified
CPT/HCPCS: 36415; 80048; 80053; 80061; 83735; 84443; 84484; 85025; 85610; 85730; 86360; 87536; 93306